=== PATIENT | male | born 1940 | race Caucasian/White ===

== ENCOUNTER 2017-05-01 05:30 | Day surgery (SDC) | payer OTHER ==
[~2017-05-01] VITALS: Ht 177.8 cm; Wt 87.1 kg
--- NOTE | ~2017-05-01 | O ---
[facility] [place] [address] OPERATIVE REPORT Name: ARNOLD CARL Andres Room #: DEP [facility].#: [id number] Admission: 05/01/17 Attend Phys: Claudio Siegel MD Discharge: 05/01/17 Date of : 36 Report #: [id number] THIS REPORT FOR: //name// CC: JOE Siegel DATE OF SERVICE: 05/01/2017 METHODS ENGINEER: None. PREOPERATIVE DIAGNOSIS: Bilateral lower lid entropion. POSTOPERATIVE DIAGNOSIS: Bilateral lower lid entropion. OPERATION PERFORMED: Bilateral lower lid entropion repair. ANESTHESIA: Local with IV sedation. COMPLICATIONS: None. INDICATIONS FOR PROCEDURE: This patient has bilateral lower lid entropion with chronic irritation and discharge. The current procedures are being undertaken in order to improve the patient's level of comfort and visual function. Informed consent was obtained to include but not limited to the loss of vision, bleeding, infection, scarring, failure to improve the problem and need for further surgery. DESCRIPTION OF OPERATION: The patient was taken to the operating room, where 2% Xylocaine with epinephrine mixed with equal parts of 0.75% Marcaine with Wydase was administered transcutaneously and transconjunctivally to each lower lid and lateral canthal area. The patient was then prepped and draped in the usual sterile fashion. A Connor clamp was used to clamp the left lateral canthus, following which a sharp canthotomy and cantholysis were performed. Hemostasis was achieved with a monopolar cautery, as it was throughout the case. A tarsal strip was prepared laterally, removing the lash bearing portion of the redundant lid margin and the redundant tarsal plate. A transconjunctival dissection was then undertaken just inferior to the lower border of the tarsal plate. The lower lid retractors were disinserted from the inferior border of the tarsal plate. The lower lid retractors were then advanced and reattached to the anterior surface of the tarsal plate with mattress 5-0 chromic sutures passed transconjunctivally and secured in the infraciliary margin. The tarsal strip was then secured laterally with 2 interrupted 5-0 Prolene sutures. The subcutaneous structures and the skin were then closed with multiple interrupted 6-0 plain gut sutures so the lateral canthal angle was sharply reformed. The wounds were then cleaned and dressed with ophthalmic antibiotic ointment. [address] [address] OPERATIVE REPORT Name: CARLARNOLD Andres [facility] #[facility] [id number] Admission: 05/01/17 Attend Phys: Claudio Siegel MD Discharge: 05/01/17 Date of : 36 Report #: [id number] The patient was then transported to the recovery area, having tolerated the procedure well with no anesthetic or operative complications being noted. <ELECTRONICALLY SIGNED> By: Claudio Siegel MD 05/09/17 1549 1523 1553 MD johnny Norman
[~2017-05-01 05:30] MED LIST: ASPIRIN81 M2 PO; FISH OIL CONCE1 EAC1 PO; METRONIDAZOLE55 GM TP; MULTIVITAMINS1 EAC4 PO; OMEPRAZOLE40 MG PO; PRED FORTE 1% EY5 M1 OP; SIMVASTATIN10 MG PO; XALATAN2.5 ML OPHTHALMIC; ZANTAC 150MG T150 MG PO
[2017-05-01 13:40] VITALS: BP 140/6
== END 2017-05-01 16:15 | disposition home or self-care (01) ==
LOC: TBA 05:30 → OR 05:30
DX: H02.002 Unspecified entropion of right lower eyelid (principal); H02.005 Unspecified entropion of left lower eyelid
CPT/HCPCS: 50010; 50101; 50386; 50398; 51636; 56527; 56531; 62110; 62850; 70005

== ENCOUNTER 2017-11-02 05:28 | Day surgery (SDC) | payer OTHER ==
[~2017-11-02] VITALS: Ht 177.8 cm; Wt 94.1 kg
--- NOTE | ~2017-11-02 | O ---
[facility] [place] [address] OPERATIVE REPORT Name: ARNOLD CARL Room #: DEP [facility]#: [id number] Admission: 11/02/17 Attend Phys: Claudio Siegel MD Discharge: 11/02/17 Date of : 36 Report #: [id number] THIS REPORT FOR: //name// CC: Dr. Varun Grover FAM unknown Claudio Siegel SURGEON: Claudio Siegel MD CHAINSTITCH ELASTIC ATTACHER: None. PREOPERATIVE DIAGNOSIS: Bilateral upper lid dermatochalasia with superior visual field defect. POSTOPERATIVE DIAGNOSIS: Bilateral upper lid dermatochalasia with superior visual field defect. OPERATION PERFORMED: Bilateral upper lid functional blepharoplasty. ANESTHESIA: Local with IV sedation. COMPLICATIONS: None. INDICATIONS FOR SURGERY: This patient has acquired upper lid dermatochalasia with superior visual field loss both eyes because of excessive upper lid tissues to include skin and fat. Visual field testing demonstrates dense superior visual defects. Retesting with the upper lid elevated shows an improvement in visual field loss of over 30% and in excess of 12 degrees. The current procedures are undertaken in order to improve the patient's visual function. Informed consent was obtained to include but not limited to the loss of vision, bleeding, infection, scarring, failure to improve the problem and need for further surgery. DESCRIPTION OF OPERATION: The patient was taken to the operating room, where 2% Xylocaine with epinephrine mixed with equal parts of 0.75% Marcaine with Wydase was administered transcutaneously to each upper lid. The patient was then prepped and draped in the usual sterile fashion and a skin-marking pen was then utilized to outline an upper lid crease that was symmetrical on each side. Graefe forceps were then used to quantitate the redundant upper lid skin and it was similarly outlined. The incisions were then made with Negra scissors and a skin-muscle flap removed from each side with high-temp cautery. Hemostasis was achieved with the monopolar cautery as it was throughout the case. The orbital septum was then identified and the central and medial fat pads were inspected. The redundant soft tissue was then sculpted with the monopolar cautery. The upper lid crease was then reformed with tightening of the pretarsal orbicularis muscle. The upper lid crease was then further reformed [address] [address] OPERATIVE REPORT Name: ARNOLD CARL Room #: DEP [facility].#: [id number] Admission: 11/02/17 Attend Phys: Claudio Siegel MD Discharge: 11/02/17 Date of : 36 Report #: [id number] with multiple interrupted 6-0 chromic sutures. The skin was then closed with a running 6-0 plain gut suture. The wound was then cleaned and dressed with ophthalmic antibiotic ointment and a nonstick dressing. The patient was transported to the recovery area, where cold compresses were applied, having tolerated the procedure well with no anesthetic or operative complications being noted. <ELECTRONICALLY SIGNED> By: Claudio Siegel MD 11/06/17 0614 1213 1229 Claudio Siegel MD /nt
[~2017-11-02 05:28] MED LIST changes: +METRONIDAZOLE55 GM TOP; -METRONIDAZOLE55 GM TP; -PRED FORTE 1% EY5 M1 OP; +PRED FORTE 1% EY5 M1 OPHTHALMIC; +ZOCOR20 MG PO
[2017-11-02 11:00] VITALS: BP 138/65
== END 2017-11-02 16:00 | disposition home or self-care (01) ==
LOC: OR 05:28 → TBA 05:29 → OR 07:02
DX: H02.834 Dermatochalasis of left upper eyelid (principal); H02.831 Dermatochalasis of right upper eyelid; H53.462 Homonymous bilateral field defects, left side; H53.461 Homonymous bilateral field defects, right side; E78.5 Hyperlipidemia, unspecified; G47.33 Obstructive sleep apnea (adult) (pediatric); M10.9 Gout, unspecified; K21.9 Gastro-esophageal reflux disease without esophagitis; Z88.8 Allergy status to other drugs, medicaments and biological substances; Z87.442 Personal history of urinary calculi; Z87.891 Personal history of nicotine dependence; Z98.890 Other specified postprocedural states; Z98.42 Cataract extraction status, left eye; Z79.82 Long term (current) use of aspirin; Z79.899 Other long term (current) drug therapy
CPT/HCPCS: 50010; 50101; 50386; 50398; 51636; 56531; 62110; 62850; 70005